=== PATIENT | male | born 1955 | race African-American/Black ===

== ENCOUNTER 2020-11-03 07:59 | Emergency (ER) | payer OTHER ==
[~2020-11-03] VITALS: Ht 172.7 cm; Wt 70.0 kg
[2020-11-03] MEDS: LIDOCAINE 2%/EPI 1:100,000 20 ML VIAL. INJ ONE (08:40)
--- NOTE | 2020-11-03 08:43 | ED.ADGEN ---
Past Medical History Past Medical History: CHF, Diabetes-Type I, Hypertension, Other Additional Past Medical Histor: PE Past Surgical History: Splenectomy Smoking Status: Former Smoker Alcohol Use: None General Adult EDM: Chief Complaint: LOWEREXTREMITY INJURY HPI: HPI: Patient is a 65 year old male brought by EMS for bleeding to the dorsum of his left foot. Patient states he was taking a shower this morning when he looked down and noticed blood in the shower. Patient states for the past few days he has had a sore on the top of his foot. States the bleeding is nonpainful. 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 Patient denies any injury to the foot. Patient states he otherwise has been well in his usual state of health. On EMS arrival a dressing was placed and wound is hemostatic, when dressing was removed there was continued active bleeding. Pressure dressing was placed by EMS prior to arrival. Tetanus up-to-date. Review of Systems: Review of Systems: All other systems within normal limits except for as noted in the HPI Current Medications: Current Medications Medications (Trade) Dose Ordered Sig/Claudia Start Time Stop Time Status Last Admin Dose Admin Lidocaine/ Epinephrine (LIDOCAINE 2%-EPI 1:100,000 multi-dose) 20 ml 1X ONCE 11/03/20 08:15 11/03/20 10:01 DC 11/03/20 08:40 20 ML Multi-Ingredient Mouthwash/Gargle (Gi Cocktail) 20 ml 1X ONCE 11/03/20 09:15 11/03/20 10:00 DC Allergies: Allergies: Allergies Coded Allergies Type Severity Reaction Last Updated Verified No Known Drug Allergies 11/03/20 No Physical Exam: PE: Constitutional: Well developed, well nourished, no acute distress, non-toxic appearance. [] HENT: Normocephalic, atraumatic, bilateral external ears normal, nose normal. [] Eyes: PERRLA, conjunctiva normal, no discharge. [] Neck: No rigidity, supple, no stridor. [] Cardiovascular: Regular rate and rhythm, brisk cap refill. Continuous active bleed vessel to the proximal dorsum of the left foot. [] Lungs & Thorax: Non labored symmetric respirations, no tachypnea or respiratory distress [] Abdomen: Soft, nondistended. Skin: Warm, dry, no erythema, no rash. [] Back: Unremarkable Extremities: No deformities, range of motion grossly intact, bilateral 1+ pitting edema to feet] Neurologic: Alert and oriented X 3, no focal deficits noted. [] Psychologic: Affect normal, judgement normal, mood normal. [] Current Patient Data: Vital Signs: Vital Signs Date Time Temp Pulse Resp B/P (MAP) Pulse Ox O2 Delivery O2 Flow Rate FiO2 11/03/20 08:09 98.0 78 16 103/69 (80) 93 Room Air 98.0 EKG: EKG: [] Heart Score: C/O Chest Pain: No Risk Factors: Risk Factors: DM, Current or recent (<one month) smoker, HTN, HLP, family history of CAD, obesity. Risk Scores: Score 0 - 3: 2.5% MACE over next 6 weeks - Discharge Home Score 4 - 6: 20.3% MACE over next 6 weeks - Admit for Clinical Observation Score 7 - 10: 72.7% MACE over next 6 weeks - Early Invasive Strategies Radiology/Procedures: Radiology/Procedures: Patient was prepped and draped in normal fashion, wound irrigated and cleansed with normal saline. The 0.5 cm wound was anesthetized with lidocaine with epinephrine []. Wound was approximated with figure of 8 suture, still oozing from the wound a second [id number] suture was placed distal to the wound and hemostasis was achieved.. 2 [id number] sutures placed without complication. Wound was cleaned and dressed with a nonadherent bandage Course & Med Decision Making: Course & Med Decision Making Patient has stable vital signs and was observed in the emergency department and walked to ensure no rebleeding. Gene Disclaimer: Gene Disclaimer: This electronic medical record was generated, in whole or in part, using a voice recognition dictation system. Departure Departure Impression: Primary Impression: Injury of dorsal vein of left foot Disposition: 01 DC HOME SELF CARE/HOMELESS Condition: IMPROVED Patient Instructions: Sutured Wound Care Additional Instructions: Follow-up with your primary care provider in 3 to 4 days for reevaluation of the wound and sutures. There are 2 [id number] sutures placed in your left foot. Keep the compression dressing over wound and elevate feet as much as possible over the next few days. CHRSITY FLANNERY MD Nov 03, 2020 08:43
[2020-11-03] MEDS ORDERED: LIDO:MAALOX 1:1 20 ML SINGLE DOSE. SWSW ONE (09:15)
[2020-11-03 09:34] VITALS: BP 125/77
== END 2020-11-03 10:47 | disposition home or self-care (01) ==
LOC: ER 07:59
DX: S95 Injury of blood vessels at ankle and foot level (principal); R60.0 Localized edema; I11.0 Hypertensive heart disease with heart failure; I50.9 Heart failure, unspecified; E10.9 Type 1 diabetes mellitus without complications; Z87.891 Personal history of nicotine dependence; Z90.89 Acquired absence of other organs; Y29.XXXA Contact with blunt object, undetermined intent, initial encounter; Y93.89 Activity, other specified; Y92.89 Other specified places as the place of occurrence of the external cause; Y99.8 Other external cause status
CPT/HCPCS: 12011; 99283; J3490